=== PATIENT | male | born 1995 | race Two or more races ===

== ENCOUNTER 2024-06-29 19:42 | Emergency (ER) | payer MEDICAID, SELFPAY ==
[2024-06-29 19:45] VITALS: BMI 20.7
--- NOTE | 2024-06-29 19:45 | XR_ITS ---
Examination: PA chest single view Technique: Upright PA chest single view Exam date and time: June 29, 20242007 hrs. Indications: Injury to the right chest today right rib pain Findings: Normal heart size No pneumothorax Clavicles ribs appear intact with bifid right fourth fifth rib Impression: No pneumothorax pulmonary contusion or hemothorax No acute rib fractures depicted
[2024-06-29 19:46] VITALS: BP 136/87; PULSE 92; RESP 18; TEMP 36.6; O2SAT 96
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
[2024-06-29 20:38] VITALS: RESP 18
== END 2024-06-29 20:38 ==
LOC: SERX 20:43
PROVIDERS: Emergency Provider Emergency Medicine; Referring Provider Emergency Medicine
DX: Z02.89 Encounter for other administrative examinations (principal); S20.219A Contusion of unspecified front wall of thorax, initial encounter; V89.2XXA Person injured in unspecified motor-vehicle accident, traffic, initial encounter
CPT/HCPCS: 71045; 99283